=== PATIENT | male | born 1960 | race Caucasian/White ===

== ENCOUNTER 2022-03-30 11:01 | Day surgery (SDC) | payer OTHER ==
[2022-03-25 08:43] LABS: BASOPHILS # (AUTO) 0.1 X10'3 (0-0.2); BASOPHILS % (AUTO) 0.8 % (0-1); EOSINOPHILS # (AUTO) 0.1 X10'3 (0-0.9); EOSINOPHILS % (AUTO) 1.1 % (0-6); HEMATOCRIT 47.7 % (42.0-52.0); HEMOGLOBIN 16.3 g/dl (14.0-17.9); LYMPHOCYTES # (AUTO) 1.6 X10'3 (1.1-4.8); LYMPHOCYTES % (AUTO) 22.3 % (21-51); MEAN CORPUSCULAR HEMOGLOBIN 31.6 PG (27.0-31.0); MEAN CORPUSCULAR HGB CONC 34.2 g/dL (33.0-36.5); MEAN CORPUSCULAR VOLUME 92.4 FL (78-98); MEAN PLATELET VOLUME 8.5 FL (7.4-10.4); MONOCYTES # (AUTO) 0.5 X10'3 (0-0.9); MONOCYTES % (AUTO) 7.4 % (2-12); NEUTROPHILS % (AUTO) 68.4 % (42-75); PLATELET COUNT 192 X10'3 (140-440); RED BLOOD COUNT 5.16 X10'6 (4.70-6.10); RED CELL DISTRIBUTION WIDTH 12.7 % (11.5-14.5); WHITE BLOOD COUNT 7.3 X10'3 (4.5-11.0)
[2022-03-25 08:58] LABS: ALBUMIN 4.1 G/DL (3.4-5.0); ANION GAP 4 (8-16); BLOOD UREA NITROGEN 17 MG/DL (7-18); BUN/CREATININE RATIO 12.4 (5.4-32.0); CALCIUM 9.1 MG/DL (8.5-10.1); CHLORIDE 106 MMOL/L (99-107); CHOL/HDL RATIO 6.5 (0.00-4.99); CHOLESTEROL 279 MG/DL (0-200); CREATININE 1.37 MG/DL (0.60-1.10); GLUCOSE 121 MG/DL (70-104); HDL CHOLESTEROL 43 MG/DL (35-60); LDL CHOLESTEROL 159 MG/DL (50-100); SODIUM 141 MMOL/L (135-145); TOTAL CARBON DIOXIDE 30.8 MMOL/L (24-32); TRIGLYCERIDES 258 MG/DL (20-135); eGFR 52 ML/MIN
[2022-03-25 09:29] LABS: APTT 24 SECONDS (22-32)
[2022-03-30] VITALS (10 sets, daily range): BP systolic 121–154; BP diastolic 60–82
[~2022-03-30] VITALS: Ht 165.1 cm; Wt 90.0 kg
[2022-03-30] MEDS ORDERED: diphenhydrAMINE 25mg capsule PO PRN (11:15)
[2022-03-30] MEDS ORDERED: normal saline 1,000 ML IV SCH (11:15)
[2022-03-30] MEDS ORDERED: LORazepam 0.5 MG tablet PO PRN (11:15)
[2022-03-30] MEDS ORDERED: FURO-150 PO (11:29)
[2022-03-30] MEDS ORDERED: AMIO200T61 PO (11:29)
[2022-03-30] MEDS ORDERED: ASPI81TA52 PO (11:29)
[2022-03-30] MEDS ORDERED: EPLE25TA4 PO (11:29)
[2022-03-30] MEDS ORDERED: NITR0.4T48 SL (11:29)
[2022-03-30] MEDS ORDERED: CARV-50 PO (11:29)
[2022-03-30] MEDS ORDERED: verapamil 2.5 mg/ml inj IV ONE (11:46)
[2022-03-30] MEDS ORDERED: midazolam 1 mg/ML 2ml injection ONE (11:46)
[2022-03-30] MEDS ORDERED: nitroGLYCERIN-Tridil 50MG/D5W 250 ML IV ONE (11:46)
[2022-03-30] MEDS ORDERED: fentaNYL/PF 50MCG/1 ML 2ML syringe ONE (11:47)
[2022-03-30] MEDS ORDERED: heparin 1,000unit/ml 10ml vial 10 ML ONE (11:47)
[2022-03-30] MEDS ORDERED: iohexol 350MG/ML 100ml bottle IV ONE ×2 (11:47→13:59)
[2022-03-30] MEDS ORDERED: LIDOcaine 1% 30ml preserv. free vial ONE (11:47)
[2022-03-30] MEDS ORDERED: HYDROcodone/acetaminophen 10/325mg tab PO PRN (15:25)
[2022-03-30] MEDS ORDERED: HYDROcodone/acetaminophen 5mg/325mg tablet PO PRN (15:25)
== END 2022-03-30 19:00 | disposition home or self-care (01) ==
LOC: SSTAY O 11:01
PROVIDERS: ATTEND Internal Medicine Interventional Cardiology
DX: R07.89 Other chest pain (principal); I25.810 Atherosclerosis of coronary artery bypass graft(s) without angina pectoris; I25.82 Chronic total occlusion of coronary artery; I25.10 Atherosclerotic heart disease of native coronary artery without angina pectoris; I11.0 Hypertensive heart disease with heart failure; I50.9 Heart failure, unspecified; I25.2 Old myocardial infarction; Z79.899 Other long term (current) drug therapy; Z98.890 Other specified postprocedural states
CPT/HCPCS: 36415; 80048; 80061; 85025; 85610; 85730; 93005; 93459; 93567; 99152; 99153; C1760; C1769; C1894; J1644; J2250; J3010; J3490; J7030; Q9967; A4620; A5120; A6258

== ENCOUNTER 2025-03-02 05:57 | Inpatient (IN) | payer OTHER, MEDICARE ==
[~2025-03-02] VITALS: Ht 165.1 cm; Wt 84.8 kg
[~2025-03-02 05:57] MED LIST: AMI200T PO; ASPI81TA52 PO; CARV6.252 PO; CLOP75TA34 PO; EPLE25TA24 PO; FURO-150 PO; NITR0.4T48 SL
--- NOTE | 2025-03-02 06:44 | ELECTROCARDIOGRAPH REPORT ---
[facility] Test Date: 2025-03-02 Test Time: 06:12:57 Pat Name: BJORN COULTER Department: EMERGENCY ROOM Room: Gender: M Senior Marketing Manager: ANDREW : 1960 Requested By: DEB CAMPBELL Order Number: [id number] Reading MD: Dr. Deb Campbell Measurements Intervals [place] Rate: 75 P: 53 VT: 218 QRS: 35 QRSD: 130 T: 168 QT: 382 QTc: 427 Interpretive Statements Sinus rhythm Borderline prolonged [place] interval Nonspecific intraventricular conduction delay Inferior infarct, old Anterolateral infarct, age indeterminate Electronically Signed On 03-02-2025 7:36:[address] Deb Campbell Please click the below link to view image of tracing.
--- NOTE | 2025-03-02 07:14 | Physician Documentation ---
History of Present Illness ~ Chief Complaint: Fever Stated Complaint: FEVER Time Seen by MD: 06:47 OK to notify your PCP?: Yes Source: patient, RN/, RN notes reviewed, old records Mode of Arrival: POV, Dropped Off Exam Limitations: no limitations HPI This patient has been sick for about a week now with high fevers. Patient has many comorbidities for his heart. He states his last ejection fraction was 22- 25%. He is followed by Dr. Sauceda at the [facility]. He has had prior myocardial infarctions. He takes Lasix every other day 10 mg. He states his urine has been dark colored. He has been having trouble drinking fluids because he just feels weak and tired his T-max was 102.5. He says the 1st three days he seemed to be feeling really sick [facility] was started on antibiotics. His COVID influenza a and B were all negative from the [facility]. he states he continues to have shortness of breath but mostly his headache seems to be the worse he is not sleeping well as well. He also states there seems to be in increased work of breathing. Denies any history of asthma or COPD. He did smoke three decades ago. The patient is in the [employer]. He also has chickens and cleans to chicken coop. He is exposed to the chickens but they are all healthy as far as he knows. He denies any cough or phlegm. He states he feels weak fatigued tired does not feel well and that is why he is mostly here because it seems to be affecting his body this last week. His at the bedside. Medication Reconciliation Allergies: Coded Allergies: Benzodiazepines (Verified Allergy, Unknown, 03/30/22) midazolam (Verified Allergy, Unknown, 03/30/22) Scheduled Amiodarone Hcl (Cordarone), 200 MG PO DAILY, (Reported) Aspirin (Aspirin EC), 1 TAB PO DAILY, (Reported) Carvedilol (Carvedilol), 1 TAB PO Q12H, (Reported) Clopidogrel Bisulfate (Clopidogrel), 75 MG PO DAILY Eplerenone (Eplerenone), 1 TAB PO DAILY, (Reported) Nitroglycerin (Nitroglycerin), 1 TAB SL UD, (Reported) Scheduled PRN Furosemide* (Lasix*), 0.5 TAB PO DAILY PRN for water retension, (Reported) Past Medical History Past Medical History: *CARDIOVASCULAR*, Arrhythmia, Coronary Artery Disease, Myocardial Infarction Past Surgical History: pacemaker Patient History: FH: myocardial infarction FATHER, Onset:57 FH: stroke MOTHER, Onset:72 Alcohol Use: None Drug Use: none Lives In: Home Review of Systems All Other Systems at this time: Reviewed and Negative Physical Exam Vital Signs: RN Vital Signs have been reviewed: Yes, Temperature: 99.2, Source: Oral, Heart Rate: 74, Respiratory Rate: 18, BP: 137/68, Pulse Oximetry: 96, Weight: 84.850 Oxygen Flow Rate: 0 Physical Exam General: The patient is well developed, well nourished, nontoxic appearing and is in no acute distress. Ill-appearing Skin: [place], warm and dry with no rashes. HEENT: Head was normocephalic and atraumatic. Eyes - pupils equal, round, reactive to light and accommodation. Extraocular movements were intact. Conjunctivae were nonicteric. l. The mouth and oropharynx were clear with mois t mucous membranes. There were no pharyngeal exudates or erythema. Neck: Supple and nontender. There was no jugular venous distention, lymphadenopathy, thyromegaly or masses. Chest: No accessory muscle use. No wheezes or rhonchi. Normal breath so unds. However there was significant crackles on the right posterior base asymmetrical compared to the left which is clear. Heart: Rate regular and rhythmic. S1, S2. No murmurs. Palpation of the chest wall was normal. No rubs or thrills. Abdomen: Soft, nontender and nondistended. Positive bowel sounds. No guarding or rebound. No hepatosplenomegaly or palpable masses. Extremities: No cyanosis, clubbing or edema. The patient moves all extremities. Pulses were equal and symmetric. Neurologic: Motor sensory grossly intact Psychologic: The patient was oriented to person, place and time. The patient demonstrated appropriate judgement and insight. Progress Progress Note Admitted to the hospitalist at 8:[address] Klein Results/Orders Reviewed/noted all lab results: Yes Results/Orders Orders - FEDE CHANDRA MD Electrocardiogram (03/02/25 06:42) Urinalysis, Cult If Indicated (03/02/25 06:47) Culture Blood (03/02/25 06:47) Chest,Single View (03/02/25 06:47) Hs Troponin I W Calculations (03/02/25 08:47) Azithromycin/Ns 500mg/250ml (Zithromax/N (03/02/25 07:40) Page Hospitalist (03/02/25 07:40) Fill Out Med Reconciliation (03/02/25 07:40) Completed Orders - FEDE CHANDRA MD Electrocardiogram (03/02/25 06:42) Cbc/Diff (03/02/25 06:47) MG (03/02/25 06:47) Chest,Single View (03/02/25 06:47) Procalcitonin (03/02/25 06:47) BMP (03/02/25 06:47) Hs Troponin I W Calculations (03/02/25 06:47) PBNP (03/02/25 06:47) Lacticsepsis (03/02/25 06:47) Medications Received in ER Medications (Trade) Dose Ordered Sig/Franky Route PRN Reason Start Time Stop Time Status Last Admin Dose Admin Azithromycin 250 ml @ 250 mls/hr ONCE ONCE IV 03/02/25 07:40 03/02/25 08:39 03/02/25 07:48 250 MLS/HR Vital Signs 03/02/25 03/02/25 03/02/25 03/02/25 05:59 06:25 06:27 07:30 Temp 99.2 99.2 99.2 Pulse 78 74 98 Resp 26 18 18 18 B/P (MAP) 140/69 137/68 (91) 112/86 (95) Pulse Ox 95 96 98 O2 Flow Rate 0 0 0 Laboratory Tests Test 03/02/25 06:30 03/02/25 07:25 White Blood Count 11.2 H Red Blood Count 4.69 L Hemoglobin 14.7 Hematocrit 42.9 Mean Corpuscular Volume 91.7 Mean Corpuscular Hemoglobin 31.5 H Mean Corpuscular Hemoglobin Concent 34.3 Red Cell Distribution Width 12.8 Platelet Count 142 Mean Platelet Volume 9.7 Neutrophils (%) (Auto) 82.5 H Lymphocytes (%) (Auto) 6.7 L Monocytes (%) (Auto) 10.4 Eosinophils (%) (Auto) 0.2 Basophils (%) (Auto) 0.2 Neutrophils # (Auto) 9.2 H Lymphocytes # (Auto) 0.7 L Monocytes # (Auto) 1.2 H Eosinophils # (Auto) 0.0 Basophils # (Auto) 0.0 CBC Comment Sodium Level 138 Potassium Level 3.7 Chloride Level 103 Carbon Dioxide Level 25.4 Anion Gap 10 Blood Urea Nitrogen 15 Creatinine 1.29 H Estimated GFR/1.73 m2 56 BUN/Creatinine Ratio 11.6 Glucose Level 157 H Lactic Acid Level 1.7 Calcium Level 8.6 Magnesium Level 2.1 Troponin I High Sensitivity 34 Pro-B-Type Natriuretic Peptide 4932 H Albumin 3.1 L Procalcitonin < 0.05 Chemistry Comments Urine Comment SARS-CoV-2 Antigen (Rapid) Negative Re-Evaluation Re-Evaluation : Re-Evaluation: Unchanged Progress Patient was seen and examined. Patient is given reassurance. The patient is complaining aches pains myalgias flu-like symptoms. High fevers one 0 to max. Exposed to birds. Exam was asymmetrical with some crackles at the base. The patient was given Zithromax. They are already on antibiotics. There was no wheezing. Patient does not look 100%. COVID was repeated. [facility] patient has a slight leukocytosis with a WBC of 11.2 and a left shift of 82 somewhat suspicious for a bacterial process however the lactic acid is 1.7 and procalcitonin is negative. Patient's chemistries w ithin normal limits with some minimal prerenal dehydration creatinine of 1.29. COVID was obtained and remains negative. Patient's urinalysis shows a specific gravity of 1.025. With some trace proteinuria trace ketonuria but leukocyte esterase is negative and nitrates were also negative. The hospitalist was then consulted who kindly agreed to help manage the patient. Patient was started on Zithromax for is exposures to birds. Patient's troponin is negative at 34. ProBNP is elevated at 4932. X-ray also did show some mild cephalization and significant cardiomegaly however there seems to be some peripheral infiltrates on the right side which coincides with my clinical findings. Continuous absorption and adsorption engineer interpretation shows normal sinus rhythm heart rate 70s, no ectopy, normal, my interpretation. Pulse oximetry monitor interpretation shows normal oxygenation at 95% room air, normal, my interpretation. EKG/XRAY/CT/US/VASC/MRI EKG : Intepreting Monitor?: Yes Additional Comment Ordering Physician: FEDE CHANDRA MD Exam Name: ELECTROCARDIOGRAM Technologist: [facility] Test Date: 2025-03-02 Test Time: 06:12:57 Pat Name: BJORN COULTER Department: EMERGENCY ROOM Room: Gender: M Pediatric Intensive Physician: ANDREW : 1960 Requested By: FEDE CHANDRA Order Number: [id number] Reading MD: Dr. Fede Chandra Measurements Intervals [place] Rate: 75 P: 53 [place]: 218 QRS: 35 QRSD: 130 T: 168 QT: 382 QTc: 427 Interpretive Statements Sinus rhythm Borderline prolonged [place] interval Nonspecific intraventricular conduction delay Inferior infarct, old Anterolateral infarct, age indeterminate Electronically Signed On 03-02-2025 7:36:[address] Fede Chandra Chest X-Ray : Views: 1 VIEW Additional Comments Ordering Physician: FEDE CHANDRA MD Exam: CHEST,SINGLE VIEW EXAM: XR Chest, 1 View CLINICAL INDICATION: SEPSIS TECHNIQUE: Frontal view of the chest. COMPARISON: DI CHEST,SINGLE VIEW on DOS: 10/19/23, CHEST,SINGLE VIEW on DOS: 08/22/22 FINDINGS: LUNGS AND PLEURAL SPACES: See below. HEART: Cardiomegaly with mild congestion. MEDIASTINUM: Unremarkable. Normal mediastinal contour. BONES/JOINTS: Unremarkable. No acute fracture. TUBES, LINES AND DEVICES: Left-sided cardiac pacemaker. OTHER FINDINGS: . . IMPRESSION: Cardiomegaly with mild congestion. Electronically Signed by:PARKER FANG MD Heart Score: Heart Score Response (Comments) Value History N/A 0 EKG Normal 0 Age >65 2 Risk Factors 1 or 2 risk factors 1 Total 3 Medical Decision Making Additional info obtained from: old records Differential Dx:Considerations: Include: CVA, Dehydration, Electrolyte imbalance, Influenza, Mycardial infarction, Pneumonia, Pneumonitis, Pulmonary embolus, Pyelonephritis, UTI, Viral Syndrome, Other Departure Admitted to Inpatient Unit: yes, to hospitalist Admission Level of Care: Med/Surg with Tele Impression: Primary Impression: Right lower lobe pneumonia Qualified Codes: J18.9 - Pneumonia, unspecified organism Additional Impression: CHF (congestive heart failure) Qualified Codes: I50.32 - Chronic diastolic (congestive) heart failure Condition: Guarded Referrals: NO PRIMARY CARE PROVIDER (PCP) Education Educated: Patient, Family Educated regarding: diagnosis, need for follow up Signature Scribe Signature: No scribed Attestation: The note accurately reflects work and decisions made by me.Fede Chandra MD 03/02/25 07:14 EFDE CHANDRA MD Mar 02, 2025 07:14
[2025-03-02 07:15] LABS: BASOPHILS % (AUTO) 0.2 % (0-1); EOSINOPHILS % (AUTO) 0.2 % (0-6); HEMATOCRIT 42.9 % (42.0-52.0); HEMOGLOBIN 14.7 g/dl (14.0-17.9); LYMPHOCYTES # (AUTO) 0.7 X10'3 (1.1-4.8); LYMPHOCYTES % (AUTO) 6.7 % (21-51); MEAN CORPUSCULAR HEMOGLOBIN 31.5 PG (27.0-31.0); MEAN CORPUSCULAR HGB CONC 34.3 g/dL (33.0-36.5); MEAN CORPUSCULAR VOLUME 91.7 FL (78-98); MEAN PLATELET VOLUME 9.7 FL (7.4-10.4); MONOCYTES # (AUTO) 1.2 X10'3 (0-0.9); MONOCYTES % (AUTO) 10.4 % (2-12); NEUTROPHILS # (AUTO) 9.2 X10'3 (1.8-7.7); NEUTROPHILS % (AUTO) 82.5 % (42-75); PLATELET COUNT 142 X10'3 (140-440); RED BLOOD COUNT 4.69 X10'6 (4.70-6.10); RED CELL DISTRIBUTION WIDTH 12.8 % (11.5-14.5); WHITE BLOOD COUNT 11.2 X10'3 (4.5-11.0)
[2025-03-02 07:32] LABS: ALBUMIN 3.1 G/DL (3.4-5.0); ANION GAP 10 (8-16); BLOOD UREA NITROGEN 15 MG/DL (7-18); BUN/CREATININE RATIO 11.6 (10.0-20.0); CALCIUM 8.6 MG/DL (8.5-10.1); CHLORIDE 103 MMOL/L (99-107); CREATININE 1.29 MG/DL (0.60-1.10); GLUCOSE 157 MG/DL (70-104); MAGNESIUM 2.1 MG/DL (1.5-2.4); POTASSIUM 3.7 MMOL/L (3.5-5.1); PRO BRAIN NATRIURETIC PEPTIDE 4932 PG/ML (0-125); SODIUM 138 MMOL/L (135-145); TOTAL CARBON DIOXIDE 25.4 MMOL/L (24-32); eCRCL 49 ML/MIN; eGFR 56 ML/MIN
--- NOTE | 2025-03-02 07:33 | RADIOLOGY REPORT ---
EXAM: XR Chest, 1 View CLINICAL INDICATION: SEPSIS TECHNIQUE: Frontal view of the chest. COMPARISON: DI CHEST,SINGLE VIEW on DOS: 10/19/23, CHEST,SINGLE VIEW on DOS: 08/22/22 FINDINGS: LUNGS AND PLEURAL SPACES: See below. HEART: Cardiomegaly with mild congestion. MEDIASTINUM: Unremarkable. Normal mediastinal contour. BONES/JOINTS: Unremarkable. No acute fracture. TUBES, LINES AND DEVICES: Left-sided cardiac pacemaker. OTHER FINDINGS: . . IMPRESSION: Cardiomegaly with mild congestion.
[2025-03-02] MEDS: azithromycin/NS 500mg/250ml 250 ML IV ONE (07:48)
[2025-03-02 07:57] LABS: BILIRUBIN,URINE SMALL (Neg); CLARITY,URINE CLEAR (Clear); COLOR,URINE YELLOW (Yellow); GLUCOSE, URINE NEGATIVE (Neg); KETONES,URINE TRACE mg/dl (Neg); LEUKOCYTE ESTERASE ,URINE NEGATIVE (Neg); NITRITES, URINE NEGATIVE (Neg); OCCULT BLOOD,URINE TRACE-INTACT (Neg); PROTEIN,URINE 100 mg/dl (Neg)
[2025-03-02 08:04] LABS: UA COLLECTION TYPE VOIDED
[2025-03-02 08:05] LABS: BACTERIA,URINE FEW /HPF (Neg); MUCUS STRANDS MODERATE /LPF (Neg); SQUAMOUS EPITHELIAL CELL,UR FEW /LPF (FEW); WBC,URINE 0-4 /HPF (0-4)
[2025-03-02] MEDS ORDERED: magnesium hydroxide 30ml (MOM) UD suspension PO PRN (08:30)
[2025-03-02] MEDS ORDERED: mag hydrox/Alum hydrox/simeth 30ml oral suspension PO PRN (08:30)
[2025-03-02] MEDS ORDERED: potassium Cl 20 mEq SR tablet PO PRN ×2 (08:30)
[2025-03-02] MEDS ORDERED: ipratropium/albuterol 3ml nebule NEB PRN (08:30)
[2025-03-02] MEDS ORDERED: potassium Cl 40MEQ/1/2NS 520ml 520 ML IV PRN (08:30)
[2025-03-02] MEDS ORDERED: albuterol 2.5 MG/3 ML nebule NEB PRN (08:30)
[2025-03-02] MEDS ORDERED: magnesium sulf-water 4G/100mL 100 ML IV PRN (08:30)
[2025-03-02] MEDS ORDERED: magnesium sulf-water 2g/50mL 50 ML IV PRN (08:30)
[2025-03-02] MEDS ORDERED: HYDROcodone/acetaminophen 5mg/325mg tablet PO PRN (08:30)
[2025-03-02] MEDS ORDERED: HYDROcodone/acetaminophen 10/325mg tab PO PRN (08:30)
[2025-03-02] MEDS ORDERED: ondansetron/PF 4mg/2ml inj IV PRN (08:30)
[2025-03-02] MEDS: PERFLUTREN PROTEIN-A MICROSPHR (Optison) 0.22 MG/ML 3ML VIAL IV ONE (09:10)
[2025-03-02 12:28] VITALS: PULSE 114; PULSE 76; RESP 16; RESP 49; O2SAT 97
[2025-03-02 15:00] VITALS: RESP 16
[2025-03-02 18:00] VITALS: BP 134/61; PULSE 81; RESP 20; TEMP 102.5; O2SAT 93
[2025-03-02] MEDS ORDERED: furosemide 20MG tablet PO PRN (18:05)
[2025-03-02] MEDS: acetaminophen 325mg tablet PO PRN (19:49)
[2025-03-02] MEDS: docusate sod 100mg capsule PO SCH (19:49)
[2025-03-02] MEDS: carvedilol 6.25mg tablet PO SCH (19:50)
[2025-03-02] MEDS: enoxaparin 40mg/0.4ml syringe SQ SCH (19:51)
[2025-03-02 20:00] VITALS: RESP 18; O2SAT 98
[2025-03-02] MEDS: K and/or MAG REPLACEMENT MC SCH (20:00)
[2025-03-02 20:14] VITALS: PULSE 80; RESP 16; O2SAT 97
[2025-03-02 22:00] VITALS: BP 119/61; PULSE 74; RESP 18; TEMP 100.4; O2SAT 94
--- NOTE | 2025-03-02 22:01 | HISTORY AND PHYSICAL ---
History & Physical Providers to CC ~ History of Present Illness Reason for Admit\Complaint: Acute community-acquired pneumonia bacterial NOS History of Present Illness This is a 64-year-old male who presents to ED with a one-week history of intermittent fever occurring in the evening as well as shortness of breath and a cough the patient informs me that he has E develop worsening of the symptoms in his significant cough three days ago when he pulled out a 50-year-old window an inhaled significant amount of dust. The patient had a fever at home of 102 was seen at the [facility] and was tested for COVID and influenza a and B for which he was negative. The patient has a extensive history of cardiac disease and sees Dr. Sauceda his [place] at the [facility]. The patient received IV Rocephin and IV azithromycin and kept asking me if he was going to receive these antibiotics going forward for which they are ordered. The patient has a echocardiogram with a LVEF of proximally 25% on current echocardiogram, Allergies: Coded Allergies: Benzodiazepines (Verified Allergy, Unknown, 03/30/22) midazolam (Verified Allergy, Unknown, 03/30/22) Home Medications Home Medications Active Clopidogrel (Clopidogrel Bisulfate) 75 Mg Tablet 75 Mg PO DAILY Do not stop medication unless instructed by prescriber. Reported Carvedilol 6.25 Mg Tablet 1 Tab PO Q12H Cordarone (Amiodarone HCl) 200 Mg Tablet 200 Mg PO DAILY Aspirin EC (Aspirin) 81 Mg Tablet.dr 1 Tab PO DAILY 30 Days Eplerenone 25 Mg Tablet 1 Tab PO DAILY 30 Days Lasix* (Furosemide) 20 Mg Tablet 0.5 Tab PO DAILY PRN 30 Days Nitroglycerin 0.4 Mg Tab.subl 1 Tab SL UD 1st sign of attack; may repeat every 5 mins; if pain persists after 3 in 15 min, medical attention is recommended Past Medical History Past Medical History Coronary artery disease/mi, ventricular arrhythmia, hyperlipidemia,. atrial fibrillation Past Surgical History Surgical History Comment Cardio ablation, four vessel CABG, five coronary artery stent placement, appendectomy Family History Family History: FH: myocardial infarction FATHER, Onset:57 FH: stroke MOTHER, Onset:72 Past Social History Social History Comment Patient denes history of smoking/ drinking alcohol nor any illicit drug use Full Code Status however does not want to remain on life support for an extended period of time ROS ROS Except for positives in the HPI the rest of the 14 point review systems is negative Exam Vitals: Vital Signs Date Time Temp Pulse Resp B/P (MAP) Pulse Ox O2 Delivery O2 Flow Rate FiO2 03/02/25 12:28 76 16 97 Room Air* 0 21 03/02/25 11:57 99.2 115/59 (77) General: Gen. No acute distress alert and oriented 4 Lungs clear to ascultation bilaterally, no wheezes rales or rhonchi appreciated Heart normal sinus rhythm no murmurs rubs or clicks noted Abdomen soft nontender bowel sounds are normoactive Lower extremities no clubbing cyanosis, nor edema appreciated bilaterally Diagnostic Data Last Recorded Lab Results: 03/02/25 0630 03/02/25 0630 Advance Care Planning Advanced Care plannin - 30 Minutes Problems: (1) Right lower lobe pneumonia Status: Acute Additional Plan # community-acquired bacterial pneumonia NOS- IV Rocephin IV azithromycin. # atrial fibrillation continue amiodarone, and on Plavix per his [place] guide's Dr. Sauceda # chronic HFrEF no signs of acute exacerbation echocardiogram demonstrated LVEF of 25% on the preliminary report continue carvedilol and eplerenone # coronary artery disease continue aspirin and Plavix # kidney disease eval for chronic kidney disease versus acute kidney injury with daily CMP. # DVT prophylaxis SCDs and Lovenox I spent a total of 17 minutes on reviewing various resuscitative measures/ ACP with the patient at the time of admission. The patient has decided on full code status however does not want to remain on life support for any extended period of time Date of Service: Mar 02, 2025 Billing Provider: PARKER ROBLEDO DO Common Visit Codes: 49997-FLISCIG INP/OBS CARE (HIGH) Secondary Visit Codes: 76725-[id number] CARE PLAN 30 MINUTES Problem Qualifiers (1) Right lower lobe pneumonia: Pneumonia type: due to unspecified organism Qualified Codes: J18.9 - Pneumonia, unspecified organism PARKER ROBLEDO DO Mar 02, 2025 22:00
[2025-03-03 06:00] VITALS: BP 123/62; PULSE 74; RESP 20; TEMP 98.4; O2SAT 95
[2025-03-03 06:05] LABS: BASOPHILS % (AUTO) 0.4 % (0-1); EOSINOPHILS % (AUTO) 0.2 % (0-6); HEMATOCRIT 39.4 % (42.0-52.0); HEMOGLOBIN 13.5 g/dl (14.0-17.9); MEAN CORPUSCULAR HEMOGLOBIN 31.5 PG (27.0-31.0); MEAN CORPUSCULAR HGB CONC 34.3 g/dL (33.0-36.5); MEAN CORPUSCULAR VOLUME 91.9 FL (78-98); MEAN PLATELET VOLUME 9.2 FL (7.4-10.4); MONOCYTES # (AUTO) 1.5 X10'3 (0-0.9); MONOCYTES % (AUTO) 13.4 % (2-12); NEUTROPHILS # (AUTO) 8.6 X10'3 (1.8-7.7); PLATELET COUNT 133 X10'3 (140-440); RED BLOOD COUNT 4.29 X10'6 (4.70-6.10); WHITE BLOOD COUNT 11.2 X10'3 (4.5-11.0)
[2025-03-03 06:22] LABS: ALANINE AMINOTRANSFERASE 25 U/L (12-78); ALBUMIN 2.6 G/DL (3.4-5.0); ALBUMIN/GLOBULIN RATIO 0.8 (1.1-1.5); ALKALINE PHOSPHATASE 56 IU/L (46-116); ANION GAP 9 (8-16); ASPARTATE AMINO TRANSFERASE 20 U/L (10-37); BILIRUBIN,TOTAL 1.6 MG/DL (0.1-1.0); BLOOD UREA NITROGEN 16 MG/DL (7-18); BUN/CREATININE RATIO 13.7 (10.0-20.0); CALCIUM 8.4 MG/DL (8.5-10.1); CHLORIDE 104 MMOL/L (99-107); CREATININE 1.17 MG/DL (0.60-1.10); GLUCOSE 129 MG/DL (70-104); MAGNESIUM 2.1 MG/DL (1.5-2.4); POTASSIUM 3.6 MMOL/L (3.5-5.1); SODIUM 140 MMOL/L (135-145); eCRCL 54 ML/MIN; eGFR 62 ML/MIN
[2025-03-03] MEDS: EPLERENONE 25MG PO SCH (08:00)
[2025-03-03] MEDS: furosemide 20 MG/2 ML vial IV SCH (08:00)
[2025-03-03] MEDS: clopidogrel 75mg tablet PO SCH (08:10)
[2025-03-03] MEDS: amiodarone 200mg tablet PO SCH (08:10)
[2025-03-03] MEDS: CefTRIAXone/D5W-Rocephin 1gm 50 ML IV SCH (08:10)
[2025-03-03] MEDS: azithromycin 250mg tablet PO SCH (08:11)
[2025-03-03] MEDS: aspirin 81mg, enteric-coated 1 TAB TABLET.DR PO SCH (08:11)
[2025-03-03 11:00] VITALS: BP 118/58; PULSE 74; RESP 17; TEMP 102; O2SAT 93
[2025-03-03 17:24] VITALS: PULSE 66; RESP 18; O2SAT 94
--- NOTE | 2025-03-03 17:27 | CARDIOLOGY REPORT ---
APPROVED REPORT EXAM: Comprehensive 2D, Doppler, and color-flow Echocardiogram. Patient Location: 347 [address] Blood Pressure: 118/58 mmHg Heart Rate: 68 bpm Rhythm: Sinus Indications Congestive Heart Failure Hx of CAD Hx of CABG X 4 Stents X 5 Pacemaker Billing And Quality Technician: [facility] Patient Elizabeth Sauceda MD Previous echo: 08/22/2022 [facility] EF:25-30% 2D Dimensions RVDd 4.0 cm LA Diam4.9 cm IVSd 1.4 (0.7-1.1cm) LVDd 5.9 cm PWd 1.3 (0.7-1.1cm) IVSs 1.5 (0.8-1.2cm) RA Minor4.8 cmLVDs 5.1 (2.5-4.0cm) PWs 1.3 (0.8-1.2cm) LVOT Diameter 2.17 (1.8-2.4cm) LVEF(%) 28.2 (>50%) IVC 21.79 mm FS (%) 13.4 % SV 49.3 ml CO 3.9 L/min M-Mode Dimensions RVDd 3.52 (2.1-3.2cm) Left Atrium(MM) 5.13 (2.5-4.0cm) IVSd 1.29 (0.7-1.1cm) LVDd 6.80 (4.0-5.6cm) Aortic Root 3.52 (2.2-3.7cm) PWd 1.58 (0.7-1.1cm) Aortic Cusp Exc 1.78 (1.5-2.0cm) IVSs 1.63 cm MV EPSS 1.8 (<0.5cm) LVDs 6.01 (2.0-3.8cm) FS (%) 12 % PWs 1.21 cm ESV(Teich) 180.4 ml LVEF(%) 25 (>50%) Aortic Valve AoV Peak Leo. 105.2 cm/s AoV VTI 19.3 cm AO Peak GR. 4.4 mmHg AO Mean GR. 2 mmHg LVOT VTI 18.67 cm LVOT Peak Leo. 97.9 cm/s CJ(VTI)/BSA 3.57 cm2/m2 CJ (VTI) 3.57 cm2 Mitral Valve MV E Velocity 87.3 cm/s MV Peak Gr. 3 mmHg MV DECEL TIME 172 ms MV A Velocity 47.8 cm/s MV Mean Gr. 1 mmHg MV PHT 56 ms E/A Ratio 1.8 MVA (PHT) 3.93 cm2 MR KZyy917.4 cm/sMV VMax92.3 cm/s MR PG Max93.1 mmHgMV VMean46.3 cm/s MVA VTI3.26 cm2MV VTI21.1 cm Tricuspid Valve TR P. Velocity 261 cm/s RAP ESTIMATE 15 mmHg TR Peak Gr. 27 mmHg RVSP 42 mmHg LEFT VENTRICLE The LV is dilated in size with severely reduced function. Mild concentric hypertrophy. Overall LVEF i s around 25%. RIGHT VENTRICLE Right ventricle is mild to moderately dilated with mildly reduced function. Estimated PA systolic pre ssure is 42 mmHg. Pacemaker wire in right heart. ATRIA Left atrium is severely dilated. Right atrium is moderately dilated. AORTIC VALVE Trileaflet AV appears sclerotic without stenosis or insufficiency. MITRAL VALVE Mild MV annular calcification without stenosis. Mild regurgitation. TRICUSPID VALVE TV appears structurally normal with mild regurgitation. PULMONIC VALVE Normal PV without stenosis, physiologic insufficiency. GREAT VESSELS The aortic root is normal in size. IVC is dilated and collapses less than 50% with inspiration. PERICARDIUM Normal pericardium. No pericardial effusion seen. Other Information Study Quality: Adequate Conclusion The LV is dilated in size with severely reduced function. Mild concentric hypertrophy. Overall LVEF is around 25%. Right ventricle is mild to moderately dilated with mildly reduced function. Estimated PA systolic pre ssure is 42 mmHg. Pacemaker wire in right heart. Left atrium is severely dilated. Right atrium is moderately dilated. Trileaflet AV appears sclerotic without stenosis or insufficiency. Mild MV annular calcification without stenosis. Mild regurgitation. TV appears structurally normal with mild regurgitation. Normal pericardium. No pericardial effusion seen.
[2025-03-03 18:00] VITALS: BP 120/60; PULSE 59; RESP 18; TEMP 97.7; O2SAT 95
--- NOTE | 2025-03-03 18:24 | PROGRESS NOTE ---
Daily Progress Note Providers to CC ~ Antibiotic Timeout Antibiotic Ordered?: Yes Subjective The patient continues to spike fevers even though was [place] [address] blood cultures are negative the patient is also quite sweaty. Objective Vital Signs Date Time Temp Pulse Resp B/P (MAP) Pulse Ox O2 Delivery O2 Flow Rate FiO2 03/03/25 17:24 66 18 94 Room Air* 0 21 03/03/25 11:00 102.0 118/58 (78) Result Diagram: 03/03/25 0503/03/25 05 Gen. No acute distress alert and oriented 4 Lungs clear to ascultation bilaterally, no wheezes rales or rhonchi appreciated Heart normal sinus rhythm no murmurs rubs or clicks noted Abdomen soft nontender bowel sounds are normoactive Lower extremities no clubbing cyanosis, nor edema appreciated bilaterally Problem\Assessment\Plan Problems/Diagnosis: (1) Right lower lobe pneumonia # community-acquired bacterial pneumonia NOS- IV Rocephin IV azithromycin. 03/03 sputum cultures ordered # atrial fibrillation continue amiodarone, and on Plavix per his direct service worker's Dr. Sauceda # chronic HFrEF no signs of acute exacerbation echocardiogram demonstrated LVEF of 25% on the preliminary report continue carvedilol and eplerenone # coronary artery disease continue aspirin and Plavix # kidney disease eval for chronic kidney disease versus acute kidney injury with daily CMP. # DVT prophylaxis SCDs and Lovenox Date of Service: Mar 03, 2025 Billing Provider: PARKER ROBLEDO DO Common Visit Codes: [id number] INP/OBS CARE(HIGH) Problem Qualifiers (1) Right lower lobe pneumonia: Qualified Codes: J18.9 - Pneumonia, unspecified organism PARKER ROBLEDO DO Mar 03, 2025 18:24
[2025-03-03 20:00] VITALS: RESP 18; O2SAT 95
[2025-03-03 22:00] VITALS: BP 113/45; PULSE 77; RESP 16; TEMP 99; O2SAT 97
[2025-03-03] MEDS: acetaminophen 325mg tablet PO PRN (23:37)
[2025-03-04 01:10] VITALS: PULSE 72; RESP 16; O2SAT 95
[2025-03-04 02:25] VITALS: TEMP 98.4
[2025-03-04 06:30] VITALS: BP 126/68; PULSE 62; RESP 14; TEMP 97.7; O2SAT 93
[2025-03-04 06:32] LABS: BASOPHILS % (AUTO) 0.4 % (0-1); EOSINOPHILS # (AUTO) 0.1 X10'3 (0-0.9); EOSINOPHILS % (AUTO) 0.5 % (0-6); HEMATOCRIT 42.8 % (42.0-52.0); HEMOGLOBIN 14.4 g/dl (14.0-17.9); LYMPHOCYTES # (AUTO) 1.2 X10'3 (1.1-4.8); MEAN CORPUSCULAR HEMOGLOBIN 31.3 PG (27.0-31.0); MEAN CORPUSCULAR HGB CONC 33.6 g/dL (33.0-36.5); MEAN CORPUSCULAR VOLUME 93.2 FL (78-98); MEAN PLATELET VOLUME 9.4 FL (7.4-10.4); MONOCYTES # (AUTO) 1.1 X10'3 (0-0.9); MONOCYTES % (AUTO) 11.1 % (2-12); NEUTROPHILS # (AUTO) 7.7 X10'3 (1.8-7.7); PLATELET COUNT 172 X10'3 (140-440); RED CELL DISTRIBUTION WIDTH 12.9 % (11.5-14.5); WHITE BLOOD COUNT 10.1 X10'3 (4.5-11.0)
[2025-03-04 06:48] LABS: ALANINE AMINOTRANSFERASE 44 U/L (12-78); ALBUMIN 2.9 G/DL (3.4-5.0); ALBUMIN/GLOBULIN RATIO 0.7 (1.1-1.5); ALKALINE PHOSPHATASE 68 IU/L (46-116); ANION GAP 8 (8-16); ASPARTATE AMINO TRANSFERASE 39 U/L (10-37); BILIRUBIN,TOTAL 1.3 MG/DL (0.1-1.0); BLOOD UREA NITROGEN 17 MG/DL (7-18); BUN/CREATININE RATIO 15.5 (10.0-20.0); CALCIUM 8.9 MG/DL (8.5-10.1); CHLORIDE 104 MMOL/L (99-107); GLUCOSE 132 MG/DL (70-104); MAGNESIUM 2.4 MG/DL (1.5-2.4); POTASSIUM 3.6 MMOL/L (3.5-5.1); SODIUM 142 MMOL/L (135-145); TOTAL PROTEIN 6.8 G/DL (6.4-8.2); eCRCL 57 ML/MIN; eGFR 67 ML/MIN
[2025-03-04 10:40] VITALS: BP 112/63; PULSE 66; RESP 18; TEMP 97.1; O2SAT 93
[2025-03-04] MEDS ORDERED: AZI25OT PO (12:55)
[2025-03-04] MEDS ORDERED: CEFD300C3 PO (12:55)
--- NOTE | 2025-03-04 22:06 | DISCHARGE SUMMARY ---
Discharge Summary Providers to CC ~ Discharge Summary Admission Diagnosis: Acute pneumonia Hospital Course DATE OF ADMISSION: 03/02/2025 DATE OF DISCHARGE: 03/04/2025 Discharge Diagnosis\Comment: Community acquired bacterial pneumonia NOS, permanent atrial fibrillation, chronic HFrEF, kidney disease present on admission however does not qualify for [facility] [employer]\Procedures: None Consultants: None Complications: None Condition on DC: Stable New Medications: Cefdinir* (Cefdinir*) 300 Mg Capsule 1 CAP PO Q12H, #8 CAP Azithromycin (Zithromax) Y Tablet 500 MG PO DAILY, #1 TAB Continued Medications: Amiodarone Hcl (Cordarone) 200 Mg Tablet 200 MG PO DAILY, TAB Aspirin (Aspirin EC) 81 Mg Tablet.dr 1 TAB PO DAILY for 30 Days, #30 TAB Carvedilol (Carvedilol) 6.25 Mg Tablet 1 TAB PO Q12H Clopidogrel Bisulfate (Clopidogrel) 75 Mg Tablet 75 MG PO DAILY, #14 TAB Do not stop medication unless instructed by prescriber. Eplerenone (Eplerenone) 25 Mg Tablet 1 TAB PO DAILY for 30 Days, #30 TAB Furosemide* (Lasix*) 20 Mg Tablet 0.5 TAB PO DAILY PRN for water retension for 30 Days, #30 TAB Nitroglycerin (Nitroglycerin) 0.4 Mg Tab.subl 1 TAB SL UD for chest pain, #25 TAB 0 Refills 1st sign of attack; may repeat every 5 mins; if pain persists after 3 in 15 min, medical attention is recommended Discharge Summary: I admitted the patient with the following HPI:This is a 64-year-old male who presents to ED with a one-week history of intermittent fever occurring in the evening as well as shortness of breath and a cough the patient informs me that he has E develop worsening of the symptoms in his significant cough three days ago when he pulled out a 50-year-old window an inhaled significant amount of dust. The patient had a fever at home of 102 [facility] and was tested for COVID and influenza a and B for which he was negative. The patient has a extensive history of cardiac disease and sees Dr. Sauceda his claim review medical director at the [place]. The patient received IV Rocephin and IV azithromycin and kept asking me if he was going to receive these antibiotics going forward for which they are ordered. The patient has a echocardiogram with a LVEF of proximally 25% on current echocardiogram, The patient continues to spike a fever and on the he has a fever at 11:00 a.m. of 102.0 however by the following morning his fever had resolved the patient felt significantly better and was no longer diaphoretic and was able to be discharged home on cefdinir 300 mg b.i.d. and additional dose of azithromycin 500 mg. Patient was recommended to apple picker a probiotic. There were no changes the patient's home medications. Gen. No acute distress alert and oriented 4 Lungs clear to ascultation bilaterally, no wheezes rales or rhonchi appreciated Heart normal sinus rhythm no murmurs rubs or clicks noted Abdomen soft nontender bowel sounds are normoactive Lower extremities no clubbing cyanosis, nor edema appreciated bilaterally The patient felt ready to be discharged and was medically cleared to be discharged on 03/04/2025 The patient was seen and evaluated on day of discharge. Time spent on discharge 35 minutes *Problems/Diagnosis: (1) Right lower lobe pneumonia Status: Acute Total Time Spent on D/C: > 30 Minutes Date of Service: Mar 04, 2025 Billing Provider: PARKER ROBLEDO DO Common Visit Codes: 48623-ZBL/OBS DISCH DAY >30min Problem Qualifiers (1) Right lower lobe pneumonia: Qualified Codes: J18.9 - Pneumonia, unspecified organism PRAKER ROBLEDO DO Mar 04, 2025 22:06
== END 2025-03-04 15:11 | disposition home or self-care (01) | DRG 194 ==
LOC: ER 05:58 → ED HOLD 08:51 → SUR 3N 14:00
PROVIDERS: ADMIT Family Medicine; ATTEND Family Medicine
DX: J15.9 Unspecified bacterial pneumonia (principal); I48.21 Permanent atrial fibrillation; I50.42 Chronic combined systolic (congestive) and diastolic (congestive) heart failure; Z20.822 Contact with and (suspected) exposure to COVID-19; I25.10 Atherosclerotic heart disease of native coronary artery without angina pectoris; E78.5 Hyperlipidemia, unspecified; Z88.8 Allergy status to other drugs, medicaments and biological substances; Z79.82 Long term (current) use of aspirin; Z79.899 Other long term (current) drug therapy; I25.2 Old myocardial infarction; Z95.0 Presence of cardiac pacemaker; Z90.49 Acquired absence of other specified parts of digestive tract; Z95.1 Presence of aortocoronary bypass graft; Z95.5 Presence of coronary angioplasty implant and graft
CPT/HCPCS: 36415; 71045; 80048; 80053; 81001; 83605; 83735; 83880; 84145; 84484; 85025; 87040; 87070; 87081; 87811; 93005; 93306; 94760; 96365; 99285; G0378; J0456; J0696; J1938